=== PATIENT | male | born 1990 | race Caucasian/White ===

== ENCOUNTER → 2019-12-29 09:57 | Outpatient (CLI) | payer BC, SELFPAY ==
--- NOTE | ~2019-12-29 | XR_ITS ---
EXAMINATION: XR chest 2V DATE: 12/29/2019 10:20 INDICATION: Hemoptysis TECHNIQUE: PA and lateral views of the chest are obtained. COMPARISON: 08/15/2016 FINDINGS: The lungs are free of acute opacities. There is no pleural effusion or pneumothorax. The ca rdiomediastinal silhouette is normal. The visualized bones and soft tissues are unremarkable. IMPRESSION: 1. No acute cardiopulmonary abnormality. Reviewed, dictated and finalized at location A.
== END ==
PROVIDERS: PCP Family Medicine; Visit Provider Family Medicine
DX: R04.2 Hemoptysis (principal)
CPT/HCPCS: 71046

== ENCOUNTER 2020-02-09 07:37 | Outpatient (CLI) | payer BC, SELFPAY ==
--- NOTE | 2020-02-09 | ECHO_ITS ---
Patient Info Name: Aftab Adkins Age: 29 years : 1990 Gender: Male Ht: 73 in Wt: 160 lbs BSA: 1.93 m2 HR: 66 bpm BP: 117 / 72 mmHg Heart Rhythm: Sinus Rhythm Technical Quality: Good Exam Date: 02/09/2020 8:07 AM Exam Location: [facility] Patient Status: Outpatient Admit Date: 02/09/2020 Staff Ordering Physician: Daniel, Fabiana FAJARDO Gold Miner: Derick Reynolds, OLGA, RT Attending Provider: Daniel, Fabiana FAJARDO Exam Type: CA echo doppler color flow Study Info Indications R94.31 - Abnormal electrocardiogram ECG EKG Complete two-dimensional, color flow and Doppler transthoracic echocardiogram is performed. Summary 1. Left ventricular chamber dimension is normal. 2. Left ventricular systolic function is normal, estimated at 60-65%. 3. There is trace mitral valve regurgitation. Left Ventricle Left ventricular chamber dimension is normal. Left ventricular systolic function is normal, estimated at 60-65%. There is no increased left ventricular wall thickness. Left ventricular septal wall motion is normal. The left ventricular diastolic function is normal. Right Ventricle Right ventricular chamber dimension is normal. Right ventricular systolic function is normal. Left Atria Left atrial chamber dimension is normal. Right Atria Right atrial chamber dimension is normal. Atrial Septum Intact interatrial septum visualized by color flow imaging. Aortic Valve The aortic valve is trileaflet. There is no aortic valve sclerosis. There is no aortic valve stenosis. There is no aortic valve regurgitation. Pulmonic Valve The pulmonic valve is normal. There is no pulmonic valve stenosis. There is no pulmonic regurgitation. Mitral Valve The mitral valve has normal leaflets. There is no mitral valve stenosis. There is trace mitral valve regurgitation. Tricuspid Valve The tricuspid valve leaflets are normal. There is no significant tricuspid valve stenosis. There is no tricuspid valve regurgitation. Pericardium/Pleural The pericardium appears normal. There is no pericardial effusion. Inferior Vena Cava Normal inferior vena cava with >50% collapse upon inspiration consistent with normal right atrial pressure, 5 mmHg. Aorta The aortic root size at the sinus of Valsalva is normal. The prox ascending aorta size is normal. Left Ventricular Outflow Tract Name Value Normal LVOT 2D LVOT Diameter 2.1 cm LVOT Doppler LVOT Peak Gradient 3 mmHg LVOT Mean Gradient 2 mmHg LVOT VTI 19 cm LVOT VTI/AV VTI Ratio 1.0 LVOT Stroke Volume 64 ml LVOT CO 4.0 l/min LVOT CI 2.1 l/min/m2 Mitral Valve Name Value Normal MV Doppler
== END 2020-02-09 07:38 | disposition home or self-care (01) ==
PROVIDERS: PCP Family Medicine; Visit Provider Nurse Practitioner Family
DX: R94.31 Abnormal electrocardiogram [ECG] [EKG] (principal)
CPT/HCPCS: 93306

== ENCOUNTER 2020-09-25 16:59 | Emergency (ER) | payer BC, SELFPAY ==
--- NOTE | ~2020-09-25 | XR_ITS ---
XR foot RT min 3V DATE: 09/25/2020 17:08 INDICATION: Personal second digit injury, pain TECHNIQUE: 4 views COMPARISON: None FINDINGS: There is a mildly dorsally displaced linear intra-articular fracture of the base and metaph ysis of the distal phalanx of the first digit. No other fracture or dislocation is detected. Impression: Mildly dorsally displaced comminuted intra-articular fracture of the base and metaphysis of the distal phalanx of the first digit Reviewed, dictated and finalized at location A. [employer]PER[employer] Impression: Mildly dorsally displaced comminuted intra-articular fracture of th e base and metaphysis of the distal phalanx of the first digit
[2020-09-25 17:05] VITALS: BP 139/65; PULSE 80; RESP 16; TEMP 36.6; O2SAT 100
--- NOTE | 2020-09-25 17:38 | ED.GENADULT ---
HPI - General Adult General Chief complaint: Extremity Injury, Lower Stated complaint: injury right 1st digit toe Time Seen by Provider: 09/25/20 17:34 Source: patient and RN notes reviewed Mode of arrival: ambulatory Limitations: no limitations History of Present Illness HPI narrative: 30-year-old male presents with complaints of right big toe swelling, red, and pain for the past 2 days. Aftab report he was out for his birthday and possibly injured right big toe. Taped toe without relief. No known injury. Hurts to bear weight. No radiation of pain. No numbness or tingling or loss of mobility. Denies inability to bear weight. 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 Relieving factor is rest. No fever or chills. No suspected foreign body. The patient reports he have not been diagnosed with COVID-19. The patient reports he is not waiting for the results of a COVID-19 lab test. The patient reports he do not have weakness or fatigue. The patient reports he do not have a new or worsening cough or shortness of breath. Denies chest pain. The patient reports he do not have any rhinorrhea, congestion, loss of taste, sore throat, nausea, vomiting, abdominal pain, and diarrhea. Tolerating po intake well. Denies recent traveling. Denies concerns for COVID-19 or exposures been home with limited outdoor exposure except for essential household needs, work, and return home. At this time, patient is not suspected of having COVID-19. Some parts of this dictation were generated by voice recognition software and may contain typographical and/or grammatical inaccuracies. Related Data Home Medications Medication Instructions Recorded Confirmed meclizine 25 mg PO PRN PRN 09/25/20 09/25/20 topiramate 25 mg PO PRN PRN 09/25/20 09/25/20 Allergies Allergy/AdvReac Type Severity Reaction Status Date / Time No Known Allergies Allergy Verified 09/25/20 17:08 Review of Systems Review of Systems: Narrative: CONSTITUTIONAL: Denies fever, chills, sweats. EYES: Denies visual changes, redness, discharge. ENT: Denies rhinorrhea, congestion, sore throat, otalgia. CARDIOVASCULAR: Denies chest pain, palpitations, edema. RESPIRATORY: Denies dyspnea, wheezing, cough. GASTROINTESTINAL: Denies abdominal pain, nausea, vomiting, diarrhea. SKIN: Denies rash or itching. MUSCULOSKELETAL: Denies acute back pain or myalgia. Complains of RT big toe swelling, redness, and tenderness. NEUROLOGIC: Denies numbness or focal weakness. PSYCHIATRIC: Denies anxiety or depression. All systems reviewed & are unremarkable except as noted in HPI and below PMFSH Past Medical History Medical History (Updated 09/29/20 @ 10:13 by WILVER Lyn) Apical lung scarring Fracture of fourth metacarpal bone of right hand Hemoptysis Hx of migraines Muscle weakness-general Numbness of extremity Surgical History Surgical History History of open reduction and internal fixation (ORIF) procedure Right 4th metacarpal Family History Family History (Updated 09/25/20 @ 17:48 by WILVER Lyn) Father Alive and well Mother Alive and well Social History Social History (Updated 09/25/20 @ 17:50 by WILVER Lyn) Smoking status: Former smoker Tobacco type: cigarettes Second hand tobacco smoke exposure: No Smoking end date: 01/07/19 Alcohol intake: current Substance use: never Gender identity (if verbalized by the patient): Male Comments At time of signature, agree with nurse past medical, surgical, social, and family history. There is no relevant family history pertinent to the presenting complaint. Exam Narrative: Exam Narrative: GENERAL: This is a well-nourished, well-developed patient, in no apparent distress. HEAD: normocephalic, atraumatic. EYES: PERRL. Sclera clear/white. Vision is grossly intact. CARDIOVASCULAR: Regular rate and rhythm without murm
== END 2020-09-25 18:08 | disposition home or self-care (01) ==
PROVIDERS: Emergency Provider Nurse Practitioner Family; PCP Family Medicine
DX: S92.411A Displaced fracture of proximal phalanx of right great toe, initial encounter for closed fracture (principal); X58.XXXA Exposure to other specified factors, initial encounter
CPT/HCPCS: 73630; 99214; G0463

== ENCOUNTER 2021-04-27 19:01 | Emergency (ER) | payer BC, SELFPAY ==
[2021-04-27 19:09] VITALS: BP 129/73; PULSE 73; RESP 18; TEMP 36.8; O2SAT 100
--- NOTE | 2021-04-27 19:15 | ED.MALEGU ---
HPI - Male Genitourinary General Chief complaint: Urogenital-Male Stated complaint: pressure in groin Time Seen by Provider: 04/27/21 19:10 Source: patient Mode of arrival: ambulatory Limitations: no limitations History of Present Illness HPI Narrative: Aftab Adkins is a 30 yo male with no PMH [facility] complaining of pressure in his groin that is intermittent and is not in the same place each time. Describes a catching of skin at the head of his penis intermittently and pressure in his groin that is primarily on the right but has been also is felt on the left, he denies any scrotal pain he occultly with urination any unprotected sexual partners any discharge. States the symptoms have been present for at least 2 weeks. He had an appoint with his primary care physician but it was put off and told to come to urgent care if his symptoms worsened. He does not appear to be in pain at the present He denies urgency frequency, discharge, pain on exertion, pain on movement, lesion, or hernia Related Data Home Medications Medication Instructions Recorded Confirmed No Home Medications 04/27/21 04/27/21 Allergies Allergy/AdvReac Type Severity Reaction Status Date / Time No Known Allergies Allergy Verified 10/02/20 14:45 Review of Systems Review of Systems: CONSTITUTIONAL: Denies fever, chills, sweats. EYES: Denies visual changes, redness, discharge. ENT: Denies rhinorrhea, congestion, sore throat, otalgia. CARDIOVASCULAR: Denies chest pain, palpitations, edema. RESPIRATORY: Denies dyspnea, wheezing, cough GASTROINTESTINAL: Denies abdominal pain, nausea, vomiting, diarrhea. GENITOURINARY: Denies dysuria, hematuria, abnormal discharge. Has inguinal pain that he describes as pressure SKIN: Denies rash or itching. NEUROLOGIC: Denies numbness, or focal weakness. PSYCHIATRIC: Denies anxiety or depression. [facility] Past Medical History Medical History Apical lung scarring Constipation Diarrhea Dizziness Fracture of fourth metacarpal bone of right hand Hemoptysis Hx of migraines Light headedness Muscle weakness-general Nausea Numbness of extremity Surgical History Surgical History History of open reduction and internal fixation (ORIF) procedure Right 4th metacarpal Family History Family History Father Alive and well Mother Alive and well Social History Social History Smoking status: Never smoker Tobacco type: cigarettes Second hand tobacco smoke exposure: No Smoking end date: 01/07/19 Alcohol intake: current Substance use: never Gender identity (if verbalized by the patient): Male Comments At time of signature, I agree with nursing past medical, surgical, social and family history. There is no relevant family history pertinent to the presenting complaint. Exam Narrative: GENERAL: This is a well-nourished, well-developed patient, in mild distress. Chaperoned by Berny Kraft RN HEAD: normocephalic, atraumatic. EYES Sclera clear/white. Vision is grossly intact. EARS: External ears normal, . Hearing grossly intact. NOSE: External nose normal without nasal discharge, nares without redness, no rhinorrhea. THROAT: Mucous membranes moist, NECK: Neck supple, CARDIOVASCULAR: Regular rate and rhythm without murmurs, gallops, or rubs. RESPIRATORY: Clear to auscultation. Breath sounds equal bilaterally. No wheezes, rales, or rhonchi. GASTROINTESTINAL: Abdomen soft, palpated lower abdomen into the inguinal area bilaterally with no elicitation of discomfort, testicles are soft and nontender, penis appears normal except for a mild blanching effect on the head of the penis, no apparent pain on exam-no lumps or lesions palpated SKIN: warm, intact with no suspicious lesions or rash, good
== END 2021-04-27 19:43 | disposition home or self-care (01) ==
PROVIDERS: Emergency Provider Nurse Practitioner
DX: R10.31 Right lower quadrant pain (principal); R10.32 Left lower quadrant pain
CPT/HCPCS: 81003; 87491; 87591; 87661; 99213; G0463

== ENCOUNTER 2021-05-13 11:02 | Outpatient (CLI) | payer BC, SELFPAY ==
--- NOTE | ~2021-05-13 | US_ITS ---
EXAMINATION: US soft tissue groin RT DATE: 05/13/2021 11:34 INDICATION: Pelvic and perineal pain. TECHNIQUE: Multiple grayscale and Doppler ultrasound images of the right groin were obtained. COMPARISON: CT abdomen and pelvis 08/31/2019 FINDINGS: There are normal lymph nodes in the right inguinal region in the patient's area of concern. IMPRESSION: 1. No abnormal mass or lymphadenopathy in the patient's area of concern. Reviewed, dictated and finalized at location B.
--- NOTE | ~2021-05-13 | US_ITS ---
US scrotum doppler INDICATION: Testicular pain for one month TECHNIQUE: Testicular sonogram utilizing grayscale and color Doppler FINDINGS: The testes are normal in size and appearance. No focal lesions are seen. The right testes measures 4.8 x 3.2 x 2.6 cm centimeters, and the left testis measures 5.2 x 2.3 x 3.1 cm cm. There is normal vascular flow to both testes. The right and left epididymides appear normal. There is no varicocele or hydrocele. IMPRESSION: 1. Unremarkable testicular ultrasound. Reviewed, dictated and finalized at location A.
== END 2021-05-13 11:03 ==
LOC: MICIMG 11:03
PROVIDERS: PCP Physician Assistant; Visit Provider Physician Assistant
DX: N50.819 Testicular pain, unspecified (principal); R10.2 Pelvic and perineal pain
CPT/HCPCS: 76870; 76882; 93976

== ENCOUNTER 2024-12-14 14:25 | Emergency (ER) | payer SELFPAY ==
--- NOTE | ~2024-12-14 | XR_ITS ---
XR hand LT min 3V Ordering provider: Luis Enriquez MD History: . fall, PAIN LT HAND/WRIST . Comparison: None. FINDINGS: BONES: Undisplaced fracture in the distal metaphysis of the left radius. JOINT SPACES: Well maintained. SOFT TISSUES: Unremarkable. IMPRESSION: Undisplaced fracture in the distal metaphysis of the left radius.. Reviewed, dictated and finalized at location A.
--- NOTE | ~2024-12-14 | XR_ITS ---
XR wrist LT min 3V Ordering provider: Luis Enriquez MD History: . fall, PAIN SWELLING LT WRIST . Comparison: None. FINDINGS: BONES: Undisplaced fracture in the distal metaphysis of the left radius. No other fractures seen. JOINT SPACES: Well maintained. SOFT TISSUES: Normal. IMPRESSION: Undisplaced fracture in the distal metaphysis of the left radius. Reviewed, dictated and finalized at location A.
[2024-12-14 14:41] VITALS: BP 118/72; PULSE 99; RESP 16; TEMP 36.6; O2SAT 97
--- NOTE | 2024-12-14 16:01 | ED.FALL ---
HPI - Fall General Chief Complaint: Fall Stated Complaint: wrist injury Time Seen by Provider: 12/14/24 15:48 Source: patient Mode of arrival: ambulatory Limitations: no limitations History of Present Illness HPI Narrative: Patient is a 34-year-old male who presents the ED with report of left wrist pain. Patient reports he tripped and fell, attempted to get himself with the left wrist. Complains of pain and swelling to his left wrist. Denies any other injuries. Denies numbness. Related Data Home Medications ?Medication ?Instructions ?Recorded ?Confirmed ?Last Taken ?Type No Home Medications 04/27/21 04/27/21 Unknown History Allergies Allergy/AdvReac Type Severity Reaction Status Date / Time No Known Allergies Allergy Verified 10/02/20 14:45 Review of Systems Review of Systems: All systems reviewed & are unremarkable except as noted in HPI. All systems reviewed & are unremarkable except as noted in HPI and below PMFSH Past Medical History Medical History Constipation Diarrhea Nausea Light headedness Dizziness Hx of migraines Muscle weakness-general Hemoptysis Numbness of extremity Apical lung scarring Fracture of fourth metacarpal bone of right hand Surgical History Surgical History History of open reduction and internal fixation (ORIF) procedure Right 4th metacarpal Family History Family History Father Alive and well Mother Alive and well Social History Social History Smoking status: Never smoker Tobacco type: cigarettes Second hand tobacco smoke exposure: No Smoking end date: 01/07/19 Alcohol intake: current Substance use: never Living arrangements: alone Occupation/Education: occupation Gender identity (if verbalized by the patient): Male Sexual Orientation (if Verbalized by the Patient): Straight or Heterosexual Exam Narrative: GENERAL: Well appearing, well-nourished, non-toxic, in no acute distress. HEAD: Normocephalic, atraumatic. RESPIRATORY: Airway patent, respirations nonlabored. CARDIOVASCULAR: Regular rate and rhythm. Radial pulses strong and easily palpable. MUSCULOSKELETAL: No gross deformities. Limited range of motion of left wrist due to pain. Moderate swelling and focal tenderness to palpation over distal radius region. No snuffbox tenderness. Sensation intact. Able to wiggle fingers. Capillary refill intact. SKIN: Warm, dry, normal color. NEURO: A&O X3. Speech clear. No ataxic movements. PSYCHIATRIC: Appropriate mood and affect. Normal interaction. Course Vital Signs Vital signs: Vital Signs Temperature 97.9 F 12/14/24 14:41 Pulse Rate 99 12/14/24 14:41 Respiratory Rate 16 12/14/24 14:41 Blood Pressure 118/72 12/14/24 14:41 Pulse Oximetry 97 12/14/24 14:41 Temperature 97.9 F 12/14/24 14:41 Pulse Rate 99 12/14/24 14:41 Respiratory Rate 16 12/14/24 14:41 Blood Pressure 118/72 12/14/24 14:41 Pulse Oximetry 97 12/14/24 14:41 MDM - Fall MDM Narrative Medical decision making narrative: Patient?s injury is consistent with musculoskeletal etiology. No signs of neurologic or vascular compromise on physical examination. Compartments are soft without signs of compartment syndrome. XR showing distal radius fracture. No other fractures. Pain is consistent with exam and injury. Patient placed in volar short-arm splint. Patient is felt to be stable for discharge home and further outpatient management and treatment. Will be referred to orthopedics for further evaluation. Pain medications sent to pharmacy. Discussed rice therapy, strict return precautions. He agrees with plan. Discharged in stable condition. Medical Records Attestation: I reviewed the patient's medical records. Imaging Data Attestation: I personally reviewed and interpreted this imaging study as follows: Radiologist's impression: ITS Impressions Wrist X-Ray 12/14/24 14:49 IMPRESSION: Undisplaced fracture in the distal metaphysis of the left radius. Hand X-Ray 12/14/24 14:52 IMPRESSION: Undisplaced fracture in the distal metaphysis of the left radius.. Discharge Plan Discharge Clinical Impression: Fall from ground level Fracture of distal end of radius Qualifiers: Encounter type: initial encounter Fracture type: closed Fracture morphology: Colles' Laterality: left Qualified Code(s): S52.532A - Colles' fracture of left radius, initial encounter for closed fracture Patient Disposition: Home, Self-Care Condition: Stable Instructions: Antibiotic Form, Wrist Fracture in Adults (ED), Splint Care (ED) Additional Instructions: Wear splint until seen by orthopedics. Call office to make appointment. Continue Tylenol and ibuprofen as needed for pain. [place] as needed for more severe pain. Recommend frequent icing to wrist, elevation of arm. Return to the ED if you experience worsening or severe pain or swelling, recurrent injury, numbness, or any other symptoms of concern. Patient Language: Prydeinig Prescriptions: New hydrocodone-acetaminophen 5-325 mg tablet 1 tablet PO Q6H PRN (Reason: pain) Qty: 15 0RF No Action No Home Medications Follow-up/Referrals: Tan Carreno MD [Physician] - (ORTHOPEDICS) Boone,GEOVANY Sadler [Primary Care Provider] - Stand Alone Forms: Work/School Release IP Time of Disposition: 16:05
[2024-12-14] MEDS: KETOROLAC (*BKC) 60 MG/2 ML VIAL IM (16:20)
== END 2024-12-14 16:22 | disposition home or self-care (01) ==
LOC: ANHED 16:10
PROVIDERS: Emergency Provider Physician Assistant; PCP Physician Assistant
DX: S52.532A Colles' fracture of left radius, initial encounter for closed fracture (principal); Z87.891 Personal history of nicotine dependence; W01.0XXA Fall on same level from slipping, tripping and stumbling without subsequent striking against object, initial encounter
CPT/HCPCS: 29125; 73110; 73130; 96372; 99284; J1885